=== PATIENT | male | born 1970 | race Caucasian/White ===

== ENCOUNTER 2021-12-01 07:24 | Outpatient (REF) | payer MEDICAID, SELFPAY ==
--- NOTE | ~2021-12-01 | XR_ITS ---
EXAMINATION: CR X-RAY SHOULDER AND CLAVICLE RIGHT CLINICAL INFORMATION: Right shoulder pain. COMPARISON: None TECHNIQUE: 2 views of the right clavicle and 3 views of the right shoulder were obtained. FINDINGS: There is an acute, mildly displaced fracture of the distal one third of the right clavicle with superior displacement of the proximal fragment of approximately 1.1 cm. The right supraclavicular, acromioclavicular and glenohumeral joints are intact. Mild opacification is seen in the region of the distal aspect of the rotator cuff. Multilevel posterior lateral right rib fractures are seen from the third through seventh ribs. The soft tissues are unremarkable. XR/XR shoulder RT min 2V IMPRESSION: 1. Distal right clavicular and right rib fractures are of indeterminate age. These could be acute or subacute. Correlate with patient history and physical exam. 2. Calcific tendinosis of the distal aspect of the rotator cuff.
--- NOTE | ~2021-12-01 | XR_ITS ---
EXAMINATION: CR X-RAY SHOULDER AND CLAVICLE RIGHT CLINICAL INFORMATION: Right shoulder pain. COMPARISON: None TECHNIQUE: 2 views of the right clavicle and 3 views of the right shoulder were obtained. FINDINGS: There is an acute, mildly displaced fracture of the distal one third of the right clavicle with superior displacement of the proximal fragment of approximately 1.1 cm. The right supraclavicular, acromioclavicular and glenohumeral joints are intact. Mild opacification is seen in the region of the distal aspect of the rotator cuff. Multilevel posterior lateral right rib fractures are seen from the third through seventh ribs. The soft tissues are unremarkable. XR/XR clavicle RT IMPRESSION: 1. Distal right clavicular and right rib fractures are of indeterminate age. These could be acute or subacute. Correlate with patient history and physical exam. 2. Calcific tendinosis of the distal aspect of the rotator cuff.
== END 2021-12-01 07:25 | disposition home or self-care (01) ==
LOC: HO.HOSX 07:24
PROVIDERS: Visit Provider Physician Assistant
DX: M25.511 Pain in right shoulder (principal); S42.031A Displaced fracture of lateral end of right clavicle, initial encounter for closed fracture
CPT/HCPCS: 73000; 73030; 99202

== ENCOUNTER → 2021-12-23 15:39 | Outpatient (REF) | payer MEDICAID, SELFPAY ==
--- NOTE | 2021-12-23 15:43 | CA_ITS ---
Transthoracic Echocardiogram Patient (Last, First, Middle): Nick Vasquez, Gender: Male Date of : 1970 Age: 51 Procedure Date: 12/23/2021 Procedure Type: Transthoracic Echocardiogram Location: OP Height: 175.26 cm Weight: 72.58 kg BSA: 1.88 m2 Heart Rate: bpm BP: 118 / 70 mmHg Chemical Laboratory Scientist: Referring MD: Demetrius Daniels MD Symptoms: Q25.1 COARCTATION OF AORTA Study Quality: Fair ECG Rhythm: Sinus Conclusions: - The left ventricular systolic function is normal. The calculated ejection fraction is 65% by biplane method. - No obvious valvular pathology seen on this study. - Evidence suggests grade II (moderate) diastolic dysfunction. - The basal inferior and basal inferolateral segments are hypokinetic. - Peak gradient across proximal descending thoracic aorta 11mmHg. No clear evidence of co-arctation, but visualization also suboptimal. Findings Left Ventricle Normal left ventricular cavity size. There is mildly increased left ventricular wall thickness. The left ventricular systolic function is normal. The calculated ejection fraction is 65% by biplane method. There is no evidence of regional wall motion abnormalities. E/E prime ratio is >15, consistent with elevated filling pressures. Evidence suggests grade II (moderate) diastolic dysfunction. Wall Motion Rest Echo Findings The basal inferior and basal inferolateral segments are hypokinetic. Right Ventricle Normal right ventricular cavity size and systolic function. Atria Both atria are normal in size. Aortic Valve The aortic valve was not well visualized. There is no aortic valve stenosis. There is no aortic valve regurgitation. Mitral Valve The mitral valve appears normal. There is no mitral valve regurgitation. There is no mitral valve stenosis. Pulmonic Valve The pulmonic valve is likely normal. Tricuspid Valve There is trace tricuspid valve regurgitation. The pulmonary artery systolic pressure is normal. Great Vessels The aortic annulus, sinuses of valsalva, and asc aorta are normal in size. Peak gradient across proximal descending thoracic aorta 11mmHg. No clear evidence of co-arctation, but visualization also suboptimal. Venous The inferior vena cava is normal in size and collapses greater than 50% with inspiration. Pericardium/Pleural There is no evidence of pericardial effusion. Prior Study Comparison No prior study available for comparison. Recommendations, Care & Conclusions No obvious valvular pathology seen on this study. Measurements 2D Linear Measurements IVSd: 1.05 0.6-0.9/0.6-1.0 cm LVIDd: 5.09 3.9-5.3/4.2-5.9 cm LVIDd Index: 2.71 2.4-3.2/2.2-3.1 cm/m2 LVIDs: 3.62 2.0-3.6 cm LVPWd: 1.06 0.7-1.1 cm Ao Root: 3.00 2.1-3.5 cm LA Diam: 3.40 2.7-3.8/3.0-4.0 cm LAIDs Index: 1.81 1.5-2.3 cm/m2 LV Mass: 251.03 67-162/88-224 g LV Mass Index: 133.53 43-95/49-115 g/m2 LVOT Diam: 2.40 3.0+(-)1.3 cm 2D Systolic Function EF 4C: 66.80 >55% EF 2C: 66.00 >55% EF BiP: 64.70 >55% Mitral Valve MV Pk E: 1.01 MV PK A: 0.81 MV Decel Time: 177.00 E/A: 1.20 E'Lateral: 4.68 E'Medial: 5.33 E/E' Med: 18.90 E/E' Lat: 21.60 PHT: 52.00 MVA PHT: 4.23 Decel Mcnairy: 5.70 Aortic Valve AoV Pk Martin: 1.80 AoV Mn Martin: 1.15 AoV VTI: 0.39 AoV Pk Grad: 13.00 Aov Mn Grad: 6.00 VIET Cont.VTI: 2.33 LVOT LVOT Pk Martin: 0.88 LVOT Mn Martin: 0.54 LVOT VTI: 0.20 LVOT Pk Grad: 3.00 LVOT Mn Grad: 1.00 LVOT Diam: 2.40 LVOT Area: 4.52 Diastolic Function MV Pk E: 1.01 MV Pk A: 0.81 E/A: 1.20 E'Medial: 5.33 E/E' Med: 18.90 E' Laterial: 4.68 E/E' Lat: 21.60 Right Ventricle TAPSE (mm): 25.00 TVS' Martin: 15.00 Tricuspid Valve TR Pk Martin: 2.33 TR Pk Grad: 22.00 Great Vessels Aorta Ao Root-2D: 3.00 2.0-3.7 cm Ao Asc: 3.60 2.1-3.4 cm Pulmonary Valve PV Pk Martin: 1.25 Peak PV Grad: 6.00 Updated in Other Vendor System with Status of Final Matt Limon MD electronically signed on 12/24/2021 9:06:11 AM with status of Final
== END ==
LOC: HO.CARD 15:39
PROVIDERS: PCP Internal Medicine; Visit Provider Emergency Medicine
DX: R01.1 Cardiac murmur, unspecified (principal); Q25.1 Coarctation of aorta
CPT/HCPCS: 93306

== ENCOUNTER 2022-01-12 08:39 | Outpatient (REF) | payer MEDICAID, SELFPAY ==
[2022-01-12 09:17] LABS: INTERNATIONAL NORM RATIO 1.2 (0.9-1.1); Prothrombin Time 13.6 SEC (10.0-13.1)
[2022-01-12 09:24] LABS: Hematocrit 45.7 % (42.0-52.0); Hemoglobin 15.4 g/dl (14.0-18.0); Mean Corpuscular HGB Conc 33.7 g/dl (31.0-36.0); Mean Corpuscular Hemoglobin 33.2 pg (27.0-33.0); Mean Corpuscular Volume 98.5 fL (80.0-98.0); Mean Platelet Volume 10.8 fL (9.4-12.4); Platelet Count 138 X10*3/uL (160-400); Red Blood Count 4.64 X10*6/uL (4.60-5.80); Red Cell Distribution Width 11.5 % (11.0-16.0); White Blood Count 5.3 X10*3/uL (4.8-10.8)
[2022-01-12 09:49] LABS: Alanine Aminotransferase 98 U/L (0-40); Albumin Level 4.2 g/dL (3.5-5.0); Alkaline Phosphatase 95 U/L (39-117); Anion Gap 12 (12-20); Aspartate Amino Transferase 90 U/L (5-37); Bilirubin Direct 0.7 mg/dL (0.0-0.5); Bilirubin Total 1.1 mg/dL (0.0-1.0); Blood Urea Nitrogen 18 mg/dL (9-16); Calcium 9.4 mg/dL (8.4-10.2); Carbon Dioxide 30 mmol/L (22-29); Chloride 103 mmol/L (96-108); Estimated Glomerular Filt Rate > 60; Glucose Random 107 mg/dL (60-115); Potassium 4.6 mmol/L (3.3-5.1); Sodium 140 mmol/L (135-145); Total Protein 7.2 g/dL (6.5-8.0)
[2022-01-12 10:09] LABS: HBc Num1 0.07 S/CO (0.00-0.79); HBsAGNum1 0.17 S/CO (0.00-0.99); Hepatitis B Core Antibody Nonreactive (Nonreactive); Hepatitis B Surface Antigen Negative (Negative); ~HepC Num1 14.05 S/CO (0.00-0.79); ~Hepatitis B Surface Antibody NONREACTIVE (Nonreactive); ~Hepatitis C Antibody Reactive (Nonreactive)
[2022-01-14 08:17] LABS: Hepatitis A Antibody IgM 0.15 Index (0-0.79); ~Hepatitis A Antibody IgM Nonreactive (Nonreactive)
[2022-01-14 11:32] LABS: HCV RNA PCR Qn 1860000 IU/mL (NOT DETECTED); HCV RNA PCR Qn 6.27 Log IU/mL (NOT DETECTED)
[2022-01-15 15:52] LABS: FIB-ALT 82 U/L (9-46); FIB-Alpha-2-Macroglobulin 332 mg/dL (106-279); FIB-Apolipoprotein A1 181 mg/dL (94-176); FIB-GGT 111 U/L (3-95); FIB-Haptoglobin 34 mg/dL (43-212); FIB-Total Bilirubin 1.2 mg/dL (0.2-1.2); Liver Fibrosis Score 0.81; Liver Fibrosis Stage F4; Nec Inflam Act Grade A3; Nec Inflam Act Score 0.67
[2022-01-20 16:05] LABS: HCV Genotype LiPA 1b
== END 2022-01-12 08:40 | disposition home or self-care (01) ==
LOC: HO.LAB 08:39
PROVIDERS: PCP Internal Medicine; Visit Provider Nurse Practitioner Family
DX: R10.9 Unspecified abdominal pain (principal); R74.8 Abnormal levels of other serum enzymes; R79.89 Other specified abnormal findings of blood chemistry; Z86.19 Personal history of other infectious and parasitic diseases
CPT/HCPCS: 36415; 80048; 80076; 81596; 85027; 85610; 86704; 86706; 86709; 86803; 87340; 87902; 99202; 99212

== ENCOUNTER 2022-02-16 11:51 | Outpatient (REF) | payer MEDICAID, SELFPAY ==
--- NOTE | ~2022-02-16 | XR_ITS ---
EXAMINATION: XR CLAVICLE, RIGHT CLINICAL INFORMATION: Displaced fracture lateral clavicle COMPARISON: 12/01/2021 TECHNIQUE: Two views of the right clavicle. FINDINGS: Redemonstrated displaced fracture of the distal right clavicle. The superior displacement of the proximal fragment appears similar to prior. Acromioclavicular joint is maintained. Glenohumeral alignment is anatomic on these views. Redemonstrated upper right rib fracture deformities. XR/XR clavicle RT IMPRESSION: Redemonstrated displaced fracture of the distal right clavicle, similar to 12/01/2021.
== END 2022-02-16 11:52 | disposition home or self-care (01) ==
LOC: HO.HOSX 11:51
PROVIDERS: Visit Provider Orthopaedic Surgery
DX: S42.033A Displaced fracture of lateral end of unspecified clavicle, initial encounter for closed fracture (principal)
CPT/HCPCS: 73000; 99212

== ENCOUNTER 2023-01-13 08:18 | Outpatient (REF) | payer MEDICAID, SELFPAY ==
[2023-01-13 14:02] LABS: MANUAL DIFF FLAG NO
[2023-01-13 14:10] LABS: Eosinophils Absolute Auto 0.1 X10*3/uL (0.0-0.4); Hematocrit 44.9 % (42.0-52.0); Lymphocytes Absolute Auto 1.8 X10*3/uL (1.2-4.9); Lymphocytes Percent Auto 43.7 % (20-40); Mean Corpuscular HGB Conc 33.4 g/dl (31.0-36.0); Mean Corpuscular Hemoglobin 33.6 pg (27.0-33.0); Mean Corpuscular Volume 100.7 fL (80.0-98.0); Mean Platelet Volume 12.1 fL (9.4-12.4); Monocytes Absolute Auto 0.3 X10*3/uL (0.1-1.2); Monocytes Percent Auto 7.3 % (2-11); Neutrophils Absolute Auto 1.9 x10*3/uL (2.0-8.3); Platelet Count 111 X10*3/uL (160-400); Red Blood Count 4.46 X10*6/uL (4.60-5.80); Red Cell Distribution Width 11.9 % (11.0-16.0); White Blood Count 4.1 X10*3/uL (4.8-10.8)
[2023-01-13 14:49] LABS: Alanine Aminotransferase 119 U/L (0-40); Albumin Level 3.6 g/dL (3.5-5.0); Alkaline Phosphatase 143 U/L (39-117); Anion Gap 14 (12-20); Aspartate Amino Transferase 193 U/L (5-37); Bilirubin Total 1.3 mg/dL (0.0-1.0); Blood Urea Nitrogen 9 mg/dL (9-16); Calcium 8.6 mg/dL (8.4-10.2); Carbon Dioxide 26 mmol/L (22-29); Chloride 104 mmol/L (96-108); Cholesterol 130 mg/dL; Estimated Glomerular Filt Rate > 60; Glucose Fasting 88 mg/dL (60-99); HDL Cholesterol 55 mg/dL; LDL Cholesterol Calculated 60 mg/dl; Potassium 3.7 mmol/L (3.3-5.1); Sodium 140 mmol/L (135-145); Total Protein 7.1 g/dL (6.5-8.0); Triglycerides 75 mg/dL
[2023-01-13 14:58] LABS: TSH reflex Free T4 1.53 uIU/mL (0.32-4.0)
[2023-01-13 15:00] LABS: Prostate Specific Antigen 0.25 ng/mL (<0.05-4.0)
[2023-01-14 15:59] LABS: HCV Log PCR 6.22 Log IU/mL (NOT DETECTED); HepC Viral Load 1650000 IU/mL (NOT DETECTED)
== END 2023-01-13 08:19 | disposition home or self-care (01) ==
LOC: HO.CHCLDS 08:18
PROVIDERS: Visit Provider Internal Medicine
DX: Z12.5 Encounter for screening for malignant neoplasm of prostate (principal); B19.20 Unspecified viral hepatitis C without hepatic coma
CPT/HCPCS: 36415; 80053; 80061; 84153; 84443; 85025; 87522

== ENCOUNTER 2023-02-01 03:47 | Emergency (ER) | payer MEDICAID, SELFPAY ==
[2023-02-01 03:53] VITALS: BP 112/70; PULSE 76; O2SAT 96
[2023-02-01 03:54] VITALS: BMI 20.5
== END 2023-02-03 05:32 | disposition home or self-care (01) ==
PROVIDERS: Emergency Provider Emergency Medicine
DX: F19.10 Other psychoactive substance abuse, uncomplicated (principal); B19.20 Unspecified viral hepatitis C without hepatic coma; F17.200 Nicotine dependence, unspecified, uncomplicated
CPT/HCPCS: 99281; 99283

== ENCOUNTER 2023-07-26 10:28 | Outpatient (REF) | payer MEDICAID, SELFPAY ==
[2023-07-26 14:42] LABS: MANUAL DIFF FLAG NO
[2023-07-26 14:55] LABS: Basophils Absolute Auto 0.1 X10*3/uL (0.0-0.2); Eosinophils Percent Auto 0.4 % (0-4); Hematocrit 43.1 % (42.0-52.0); Hemoglobin 14.4 g/dl (14.0-18.0); Imm Gran Abs Auto 0.01 X10*3/uL (0.00-0.03); Imm Gran Pct Auto 0.2 % (0.0-0.4); Lymphocytes Absolute Auto 1.3 X10*3/uL (1.2-4.9); Lymphocytes Percent Auto 25.7 % (20-40); Mean Corpuscular HGB Conc 33.4 g/dl (31.0-36.0); Mean Corpuscular Hemoglobin 34.4 pg (27.0-33.0); Mean Corpuscular Volume 103.1 fL (80.0-98.0); Monocytes Absolute Auto 0.6 X10*3/uL (0.1-1.2); Monocytes Percent Auto 11.2 % (2-11); Neutrophils Absolute Auto 3.2 x10*3/uL (2.0-8.3); Neutrophils Percent Auto 61.5 % (45-73); Platelet Count 127 X10*3/uL (160-400); Red Blood Count 4.18 X10*6/uL (4.60-5.80); Red Cell Distribution Width 11.8 % (11.0-16.0); White Blood Count 5.2 X10*3/uL (4.8-10.8)
[2023-07-26 15:04] LABS: INTERNATIONAL NORM RATIO 1.2 (0.9-1.1); Prothrombin Time 14.9 SEC (11.1-13.3)
[2023-07-26 15:19] LABS: Alanine Aminotransferase 75 U/L (0-40); Albumin Level 3.4 g/dL (3.5-5.0); Alkaline Phosphatase 110 U/L (39-117); Aspartate Amino Transferase 142 U/L (5-37); Bilirubin Direct 0.9 mg/dL (0.0-0.5); Bilirubin Total 1.4 mg/dL (0.0-1.0); Estimated Glomerular Filt Rate > 60; Total Protein 7.4 g/dL (6.5-8.0)
[2023-07-26 15:35] LABS: PSA,Total (Free>4and<10) 0.24 ng/mL (0.00-4.00)
[2023-07-27 07:52] LABS: HBS Num1 0.87 mIU/mL (0-7.99); HBc Num1 0.15 S/CO (0.00-0.79); HBsAGNum1 0.26 S/CO (0.00-0.99); HIV AB/AG Nonreactive (Nonreactive); HIV Num 1 0.05 S/CO (0.00-0.99); Hepatitis B Core Antibody Nonreactive (Nonreactive); Hepatitis B Surface Antigen Negative (Negative); ~Hepatitis B Surface Antibody NONREACTIVE (Nonreactive)
[2023-07-27 14:24] LABS: HCV Log PCR 6.13 Log IU/mL (NOT DETECTED); HepC Viral Load 1340000 IU/mL (NOT DETECTED)
[2023-07-30 16:58] LABS: Hepatitis C Genotype 1b
== END 2023-07-26 10:29 | disposition home or self-care (01) ==
LOC: HO.CHCLDS 10:28
PROVIDERS: Visit Provider Internal Medicine
DX: Z00.00 Encounter for general adult medical examination without abnormal findings (principal); B19.20 Unspecified viral hepatitis C without hepatic coma
CPT/HCPCS: 36415; 80076; 82565; 84153; 85025; 85610; 86704; 86706; 87340; 87389; 87522; 87902